=== PATIENT | female | born 1985 | race African-American/Black ===

== ENCOUNTER 2016-12-27 05:57 | Day surgery (SDC) | payer OTHER ==
[2016-12-25 16:55] VITALS: BMI 47.0
[2016-12-27] MEDS ORDERED: GABAPENTIN 300 MG CAPSULE (FP) PO ONE (06:14)
[2016-12-27] MEDS ORDERED: CEFAZOLIN 2 GM in DEXTROSE 5%-WATER - 100 ML IVPB ONE (06:14)
[2016-12-27] MEDS ORDERED: oxyCODONE HCL 10 MG SUSTAINED ACTING TABLET PO STA (06:14)
[2016-12-27] MEDS ORDERED: methylPREDNISolone ACET (DEPO) 40 MG/1 ML VIAL ONE (06:58)
[2016-12-27] MEDS ORDERED: GUM MASTIC/STORAX/MSAL/ALCOHOL 1 DRP DROPSBTL MC ONE (06:59)
[2016-12-27] MEDS ORDERED: THROMBIN (BOVINE) 5,000 UNIT VIAL TP ONE ×2 (06:59→09:15)
[2016-12-27] MEDS ORDERED: LIDOCAINE 1%/EPI 1:100000 (20 ML MULTI DOSE VIAL) ONE (06:59)
[2016-12-27] MEDS ORDERED: BUPIVACAINE HCL/PF 2.5 MG/ML - 30 ML VIAL IJ ONE (06:59)
[2016-12-27] MEDS ORDERED: oxyCODONE HCL 10 MG SUSTAINED ACTING TABLET ONE (07:01)
[2016-12-27] MEDS ORDERED: GABAPENTIN 300 MG CAPSULE (FP) ONE (07:02)
[2016-12-27] MEDS ORDERED: BUPIVACAINE HCL/PF 0.5% (5MG/ML) 10 ML VIAL ONE (07:32)
--- NOTE | 2016-12-27 07:32 | HP ---
History & Physical Update - History History: No Change - Physical Physical: No Change - Assessment Assessment: No Change - Plan Plan: No Change (c/o low back pain radiating down both legs, L>R. Initial h7P completed and is located in her paper chart.)
[2016-12-27] MEDS ORDERED: DEXAMETHASONE SOD PHOSPHATE 4 MG/1 ML VIAL ONE (07:35)
[2016-12-27] MEDS ORDERED: ONDANSETRON 4 MG/2 ML VIAL ONE ×2 (07:35→11:07)
[2016-12-27] MEDS ORDERED: MIDAZOLAM HCL 2 MG/2 ML SINGLE DOSE VIAL ONE ×3 (07:35→08:18)
[2016-12-27] MEDS ORDERED: ceFAZolin SODIUM 1 GM VIAL ONE (07:35)
[2016-12-27] MEDS ORDERED: SUCCINYLCHOLINE CHLORIDE 200 MG/10 ML VIAL ONE (07:36)
[2016-12-27] MEDS ORDERED: KETAMINE HCL 200 MG/20 ML VIAL ONE (08:43)
[2016-12-27] MEDS ORDERED: GELATIN SPONGE,ABSORBABLE 1 GM PACKET TP ONE (09:14)
[2016-12-27] MEDS ORDERED: LIDOCAINE 1%/EPI 1:100000 (50 ML MULTI DOSE VIAL) INF ONE (09:14)
[2016-12-27] MEDS ORDERED: methylPREDNISolone ACET (DEPO) 40 MG/1 ML VIAL IM ONE (09:16)
[2016-12-27] MEDS ORDERED: BUPIVACAINE HCL/PF 0.25% (2.5MG/ML) 10 ML VIAL IJ ONE (09:16)
[2016-12-27] MEDS ORDERED: LIDOCAINE HCL 1%, 10 MG/ML (20ML VIAL) ONE (09:54)
[2016-12-27] MEDS ORDERED: LIDOCAINE HCL 1%, 10 MG/ML (20ML VIAL) IJ ONE (10:01)
[2016-12-27] MEDS ORDERED: traMADol HCL 50 MG TABLET PO ONE ×2 (10:31→10:48)
[2016-12-27] MEDS ORDERED: ACETAMINOPHEN 1000 MG/100 ML VIAL (NON FORMULARY) IVPB ONE ×2 (10:32→10:35)
[2016-12-27] MEDS ORDERED: HYDROmorphone HCL CARPU-JECT 1 MG/1 ML DISP.SYRIN ONE ×2 (10:39→11:02)
[2016-12-27] MEDS ORDERED: HYDROmorphone HCL CARPU-JECT 1 MG/1 ML DISP.SYRIN IVPUSH ONE ×3 (10:40→11:02)
[2016-12-27 10:54] VITALS: TEMP 98.2
[2016-12-27] MEDS ORDERED: ONDANSETRON 4 MG/2 ML VIAL IVPUSH ONE (11:10)
[2016-12-27] MEDS ORDERED: ONDANSETRON 4 MG/2 ML VIAL IVPUSH PRN (11:19)
[2016-12-27] MEDS ORDERED: HYDROmorphone HCL CARPU-JECT 1 MG/1 ML DISP.SYRIN IVPUSH PRN (11:19)
[2016-12-27] MEDS ORDERED: oxyCODONE HCL 5 MG TABLET PO PRN (11:26)
[2016-12-27] MEDS ORDERED: LACTATED RINGERS SOLUTION 1,000 ML IV SCH (11:30)
[2016-12-27 13:57] VITALS: BP 111/74; PULSE 83
--- NOTE | 2016-12-27 14:06 | OP ---
DATE OF OPERATION: 12/27/2016 PREOPERATIVE DIAGNOSIS: L4-L5 spinal stenosis. POSTOPERATIVE DIAGNOSIS: L4-L5 spinal stenosis. PROCEDURE PERFORMED: Laminectomy L4-L5. SURGEON: César Amaro MD MEMS PROCESS ENGINEER: CHIP Cortes ESTIMATED BLOOD LOSS: 60 mL. INTRAVENOUS FLUIDS: Per Anesthesia. ANESTHESIA: Spinal. COMPLICATIONS: There were none. DISPOSITION: Patient brought to the PACU in stable condition. INDICATIONS FOR SURGERY: The patient is a 31-year-old female who has been suffering from pain from her back down her leg. X-rays and MRI were completed, which noted she had mild stenosis at L4-L5. She had gone through an exhaustive course of treatment which included medications, physical therapy, as well as injections. Unfortunately, her pain continued to persist despite all this. At this point, risks, benefits, and alternatives were discussed, and the patient consented to surgery. OPERATIVE NOTE: Patient was brought to the operating room by the Anesthesia staff. After appropriate patient identification was performed, spinal anesthesia was given. Patient was placed prone onto the Anselmo frame. She was able to position herself to avoid bony prominences. Two needles were placed into the back to danie off the L4-L5 level. An x-ray was taken to confirm this was correct. The needles were removed, and 10 mL of lidocaine with epinephrine was injected into the back at this time. Her back was prepped and draped in a sterile manner. At this point, a time-out was completed. An incision was made from the top of L4 down to the bottom of L5. Dissection was carried down to the fascia. Fascia was split open at this time, appropriate retractor was then placed in. A spinal needle was placed onto the L4 lamina to danie off at the L4-L5 level. An x-ray was taken to confirm this was correct. The needle was removed, and the interspinous ligament at L4-L5 was removed. Microscope was brought in. Portions of the L4 and L5 spinous processes were removed. Portions of the lamina were removed. Portions of the inferior and superior facets were removed. Flavum was removed. A complete decompression was performed such that by the end of the procedure, the L5 nerve root appeared to be well decompressed. All bleeding was well controlled at this time. Steroids were placed over the nerve root. Gelfoam was placed over that. The fascia was closed with a No. 1 Vicryl suture. The subcutaneous tissues were closed with 2-0 Vicryl suture. Skin was closed with 3-0 Monocryl suture. Dermabond was applied, Steri-Strips were applied, and sterile dressings applied. Patient was placed supine on the OR bed and was brought to the PACU in stable condition. Sarah HARPER/[id number]
--- NOTE | 2017-01-01 16:30 | PATH ---
Surgical Pathology Report Patient Name: TESSA ALTAMIRANO [facility]. Rec. #: [id number] /Age/Gender: 1985 (Age: 31) / F Account: [id number] Location: [facility] Taken: 12/27/2016 Received: 12/27/2016 Reported: 01/01/2017 Physicians: César Amaro M.D. Specimen(s) Received L4-5 DISC Clinical History Spinal stenosis Final Diagnosis L4-5 DISC, LAMINECTOMY: CARTILAGE WITH DEGENERATIVE CHANGES. Electronically Signed Conchis Monge M.D. Gross Description Received in formalin labeled "L4-5 disc," is a 1.7 x 1.2 x 0.3 cm aggregate of adams fragments of fibrocartilaginous tissue. The formalin is filtered and the specimen is entirely submitted in one cassette. 12/28/2016 [facility]12/28/2016
== END 2016-12-27 12:45 | disposition home or self-care (01) ==
LOC: FASU 05:57
PROVIDERS: ATTEND Orthopaedic Surgery Orthopaedic Surgery of the Spine
PROC: 01NB0ZZ Release Lumbar Nerve, Open Approach (ICD-10-PCS; principal; 2016-12-27 08:42)
DX: M48.06 Spinal stenosis, lumbar region (principal)
CPT/HCPCS: 72100-TC; 76000-TC; 84703; 88304-TC; 94760